=== PATIENT | female | born 1990 | race American Indian/Alaskan Native ===

== ENCOUNTER 2018-06-25 13:29 | Inpatient (IN) | payer MEDICAID, OTHER ==
--- NOTE | 2018-06-25 14:15 | Emergency Department Report ---
ED HPI - General Chief complaint: Vaginal Bleeding Stated complaint: EMERGENCY SURGERY Time Seen by Provider: 06/25/18 14:13 Source: patient Mode of arrival: Ambulatory Limitations: No Limitations - History of Present Illness Initial comments: Condition is a 28-year-old female that was sent to the ER by her UNIVERSAL WINDING MACHINE OPERATOR for preoperative evaluation. Patient states that she was told today she had a left tubal . Patient is still having vaginal spotting. Patient states she is 7 weeks and 4 days by ultrasound. Patient states she had pain up until this morning. Patient states her pain was a 10 out of 10 but at this time she is not having any pain. Patient states she is comfortable. Patient states that her UNIVERSAL WINDING MACHINE OPERATOR wants her admitted to the hospital. Patient's UNIVERSAL WINDING MACHINE OPERATOR is Dr. Sanchez. Ultrasound and office visit encounter reviewed. MD Complaint: abdominal pain, vaginal bleeding -: Sudden Severity scale (0 -10): 0 Consistency: now resolved Improves with: none Worsens with: none Associated symptoms: vaginal bleeding Vaginal bleeding: light :: Yes OB History - Current : other (ectopic ) OB History - Previous Pregnancies: no complications Pre-srikanth care: followed by OB - Related Data Allergies Allergy/AdvReac Type Severity Reaction Status Date / Time milk Allergy Vomiting Verified 06/25/18 13:45 ED Review of Systems ROS: Stated complaint: EMERGENCY SURGERY Other details as noted in HPI Constitutional: denies: chills, fever Eyes: denies: eye pain, eye discharge, vision change ENT: denies: ear pain, throat pain Respiratory: denies: cough, shortness of breath, wheezing Cardiovascular: denies: chest pain, palpitations Endocrine: no symptoms reported Gastrointestinal: abdominal pain. denies: nausea, diarrhea Genitourinary: denies: urgency, dysuria, discharge Musculoskeletal: denies: back pain, joint swelling, arthralgia Skin: denies: rash, lesions Neurological: denies: headache, weakness, paresthesias Psychiatric: denies: anxiety, depression Hematological/Lymphatic: denies: easy bleeding, easy bruising ED Past Medical Hx - Past Medical History Previous Medical History?: No - Surgical History Past Surgical History?: No - Family History Family history: no significant - Social History Smoking Status: Current Every Day Smoker Substance Use Type: None ED Physical Exam - General Limitations: No Limitations General appearance: alert, in no apparent distress - Head Head exam: Present: atraumatic, normocephalic - Eye Eye exam: Present: normal appearance - ENT ENT exam: Present: mucous membranes moist - Neck Neck exam: Present: normal inspection - Respiratory Respiratory exam: Present: normal lung sounds bilaterally. Absent: respiratory distress - Cardiovascular Cardiovascular Exam: Present: regular rate, normal rhythm. Absent: systolic murmur, diastolic murmur, rubs, gallop - GI/Abdominal GI/Abdominal exam: Present: soft, normal bowel sounds. Absent: distended, tenderness, guarding, rebound - Extremities Exam Extremities exam: Present: normal inspection - Back Exam Back exam: Present: normal inspection - Neurological Exam Neurological exam: Present: alert, oriented X3 - Psychiatric Psychiatric exam: Present: normal affect, normal mood - Skin Skin exam: Present: warm, dry, intact, normal color. Absent: rash ED Course Vital Signs 06/25/18 06/25/18 06/25/18 13:45 15:17 15:31 Temperature 98.9 F Pulse Rate 98 H Respiratory 18 Rate Blood Pressure 109/70 128/84 O2 Sat by Pulse 99 100 100 Oximetry 06/25/18 06/25/18 06/25/18 17:59 18:00 18:15 Temperature Pulse Rate Respiratory Rate Blood Pressure 128/94 126/82 126/82 O2 Sat by Pulse 98 97 Oximetry - Reevaluation(s) Reevaluation #1: Discussed all results with patient. Patient is admitted to the ELECTRONIC ASSEMBLER GROUP LEADER service. Patient agrees with plan of care. 06/25/18 16:23 - Consultations Consultation #1: Discussed case with Dr. Sanchez the patient's UNIVERSAL WINDING MACHINE OPERATOR from last cycle UNIVERSAL WINDING MACHINE OPERATOR. 06/25/18 14:16 dr sanchez to see patient. Dr. Sanchez ER. Patient admitted to her service. Dr. sanchez aware of pending ultrasound. 06/25/18 16:23 ED Medical Decision Making - Lab Data Result diagrams: 06/25/18 14:30 06/25/18 14:30 - Radiology Data Radiology results: report reviewed IMPRESSION: Single live gestation appears to be external to the uterine fundal contour in the abdominal location at 7 weeks 6 days with a heart rate of 161 beats per minute. It does not appear to be interstitial, cornual, or in the broad ligament. Findings are compatible with abdominal ectopic . No evidence for hemorrhage. Mild right adnexal and cul-de-sac fluid. No IUP identified. The endometrium is not significantly proliferative. Cervix is closed. - Medical Decision Making She is a 28-year-old female presents to emergency room with complaints of ectopic . Patient to be admitted to the UNIVERSAL WINDING MACHINE OPERATOR service. Labs unremarkable. Ultrasound done. - Differential Diagnosis abd pain. ectopic Critical Care Time: Yes Critical care attestation.: If time is entered above; I have spent that time in minutes in the direct care o f this critically ill patient, excluding procedure time. Critical Care Time: 35 minutes ED Disposition Clinical Impression: Lower abdominal pain Ectopic Qualifiers: Location of ectopic : abdominal Intrauterine status: without intrauterine Qualified Code(s): O00.00 - Abdominal without intrauterine Disposition: OP ADMIT IP TO THIS HOSP Is pt being admited?: Yes Does the pt Need Aspirin: No Condition: Critical Time of Disposition: 16:25
[2018-06-25 14:49] LABS: Basophils % (Auto) 0.3 % (0.0-1.8); Eosinophils # (Auto) 0.2 K/mm3 (0.0-0.4); Eosinophils % (Auto) 1.7 % (0.0-4.3); Hematocrit 36.3 % (30.3-42.9); Hemoglobin 11.4 gm/dl (10.1-14.3); Lymphocytes # (Auto) 2.2 K/mm3 (1.2-5.4); Lymphocytes % (Auto) 18.7 % (13.4-35.0); Mean Corpuscular HGB Conc 31 % (30-34); Mean Corpuscular Volume 75 fl (79-97); Monocytes # (Auto) 0.7 K/mm3 (0.0-0.8); Monocytes % (Auto) 5.7 % (0.0-7.3); Platelet Count 285 K/mm3 (140-440); Red Blood Count 4.86 M/mm3 (3.65-5.03); Red Cell Distribution Width 15.9 % (13.2-15.2)
[2018-06-25 14:59] LABS: INR 0.98 (0.87-1.13); Partial Thromboplastin Time 27.5 Sec. (24.2-36.6)
[2018-06-25 15:03] LABS: BUN/Creatinine Ratio 15; Blood Urea Nitrogen 6 mg/dL (7-17); Calcium 8.7 mg/dL (8.4-10.2); Hemolysis Index 4
[2018-06-25] MEDS ORDERED: ATIVAN IV ONE (16:34)
[2018-06-25] MEDS ORDERED: NACL 0.9% 1000 ML 1,000 ML IV ONE (16:34)
--- NOTE | 2018-06-25 16:56 | History and Physical Report ---
History of Present Illness Date of examination: 06/25/18 Date of admission: 06/25/18 Chief complaint: at 7 weks and 4 days with left ectopic. History of present illness: Patient is a 28 year old , LMP 04/01/18, at 7 weeks and 4 days gestation who went to the office for a routine OB sonogram for gestational dating. Sonogram showed a left tubal with positive FH. Serum HCG is 21,664. She complains of having vaginal spotting, but denies any pelvic pain. She did have mild left lower abdominal pain 2 days ago but it subsided. In ER, her vitals are stable. Past History Past Medical History: no pertinent history Medications and Allergies Allergies Allergy/AdvReac Type Severity Reaction Status Date / Time milk Allergy Vomiting Verified 06/25/18 13:45 Active Meds: Active Medications Sodium Chloride (Nacl 0.9% 1000 Ml) 1,000 mls @ 999 mls/hr IV BOLUS ONE Stop: 06/25/18 17:34 - Vital Signs Vital signs: Vital Signs Temp Pulse Resp BP Pulse Ox 98.9 F 98 H 18 109/70 99 06/25/18 13:45 06/25/18 13:45 06/25/18 13:45 06/25/18 13:45 06/25/18 13:45 Temp Pulse Resp BP Pulse Ox 98.9 F 98 H 18 128/84 100 06/25/18 13:45 06/25/18 13:45 06/25/18 13:45 06/25/18 15:31 06/25/18 15:31 - Physical Exam Cardiovascular: Normal S1, Normal S2 Lungs: Positive: Clear to auscultation Vulva: both: normal Results Result Diagrams: 06/25/18 14:30 06/25/18 14:30 Abnormal lab results 06/25/18 06/25/18 06/25/18 Range/Units 14:30 14:30 14:30 WBC 11.7 H (4.5-11.0) K/mm3 MCV 75 L (79-97) fl MCH 24 L (28-32) pg RDW 15.9 H (13.2-15.2) % Seg Neutrophils % 73.6 H (40.0-70.0) % Seg Neutrophils # 8.6 H (1.8-7.7) K/mm3 Sodium 135 L (137-145) mmol/L BUN 6 L (7-17) mg/dL Creatinine 0.4 L (0.7-1.2) mg/dL HCG, Quant 96296 H (0-4) mIU/mL All other labs normal. Assessment and Plan - Patient Problems (1) Ectopic Current Visit: Yes Status: Acute Plan to address problem: I told the patient that the findings correlate with an ectopic . I offered her a diagnostic laparoscopy with possible salpingiectomy. Risks and benefits of the procedure were discussed with her such as infection, hemorrhage requiring blood transfusion, injury to the bowel, bladder and blood vessels, having the abdomen open to locate if needed, having fallopian tube removed. She xpressed understanding, her questions were answered, she gave her informed consent. Keep NPO. IV hydration.
--- NOTE | 2018-06-25 17:13 | Ultrasound Report ---
FINAL REPORT EXAM: US OB <= 14 WEEKS FETUS HISTORY: Vaginal bleeding 28-year-old female, LMP 04/01/2018, 2, para 0, vaginal bleeding, q uestionable ectopic Comparison: None TECHNIQUE: Obstetric pelvic sonographic imaging was performed. FINDINGS: Normally anteverted uterus to measure 8.3 x 3.9 x 4.7 centimeters. Superior to the uterine contour, outside the uterine fundus and anterior, there is a round mass measu ring 3.9 centimeters which appears to contain a pole. By crown-rump length of 1.5 centimeters, estimated gestational age is 7 weeks 6 days. heart rate measures 161 beats per minute. Endometr ium does not appear significantly proliferative. Endometrial stripe measures 1 centimeter. There is minimal free fluid around the right adnexa. Right ovary measures 3.4 x 1.5 x 2.2 centimeters and contains 1.8 centimeter solid mass. Left ovary measures 1.9 x 1.4 x 2.8 centimeters and contains a mixed cystic and solid 1.7 centimeter mass.. IMPRESSION: Single live intrauterine gestation appears to be external to the uterine fundal contour in the abdomi nal location. It does not appear to be interstitial. Findings are concerning for abdominal ectopic pr egnancy. No IUP identified. The endometrial is not significantly proliferative. There is mild free fluid around the right adnexa. Cervix is closed.
--- NOTE | 2018-06-25 17:19 | Ultrasound Report ---
FINAL REPORT EXAM: US OB TRANSVAGINAL HISTORY: SUSPECTED ECTOPIC AT DR OFFICE TECHNIQUE: Obstetric pelvic sonographic imaging was performed. FINDINGS: IMPRESSION: Single live intrauterine gestation appears to be external to the uterine fundal contour in the abdominal location. It does not appear to be interstitial. Findings are concerning for abdomin al ectopic . No IUP identified. The endometrial is not significantly proliferative. There is mild free fluid around the right adnexa. Cervix is closed. FINDINGS: Normally anteverted uterus to measure 8.3 x 3.9 x 4.7 centimeters. Superior to the uterine contour, outside the uterine fundus and anterior, there is a round mass measu ring 3.9 centimeters which appears to contain a pole. By crown-rump length of 1.5 centimeters, estimated gestational age is 7 weeks 6 days. heart rate measures 161 beats per minute. Endometr ium does not appear significantly proliferative. Endometrial stripe measures 1 centimeter. There is minimal free fluid around the right adnexa. Right ovary measures 3.4 x 1.5 x 2.2 centimeters and contains 1.8 centimeter solid mass. Left ovary measures 1.9 x 1.4 x 2.8 centimeters and contains a mixed cystic and solid 1.7 centimeter mass.. IMPRESSION: Single live gestation appears to be external to the uterine fundal contour in the abdominal location at 7 weeks 6 days with a heart rate of 161 beats per minute. It does not appear to be intersti tial, cornual, or in the broad ligament. Findings are compatible with abdominal ectopic . No evidence for hemorrhage. Mild right adnexal and cul-de-sac fluid. No IUP identified. The endometrium is not significantly proliferative. Cervix is closed. Findings called and discussed with ALLISON Arguello on 06/25/2018 at 1716 hours Eastern Standard ti me.
[2018-06-25] MEDS ORDERED: SUBLIMAZE ONE (18:35)
[2018-06-25] MEDS ORDERED: DIPRIVAN 10 MG/ML IV ONE (18:35)
[2018-06-25] MEDS ORDERED: XYLOCAINE MPF 2% ONE (18:35)
[2018-06-25] MEDS ORDERED: ZEMURON IV ONE (18:35)
[2018-06-25] MEDS ORDERED: MORPHINE IV ONE (19:23)
--- NOTE | 2018-06-25 19:35 | Anesthesia Consultation ---
Anesthesia Consult and Med Hx Date of service: 06/25/18 - Airway Anesthetic Teeth Evaluation: Good ROM Head & Neck: Adequate Mental/Hyoid Distance: Adequate Mallampati Class: Class I Intubation Access Assessment: Probably Good - Pulmonary Exam CTA: Yes - Cardiac Exam Cardiac Exam: RRR - Pre-Operative Health Status ASA Pre-Surgery Classification: ASA2 Proposed Anesthetic Plan: General, MAC - Pulmonary Hx Smoking: Yes Hx Respiratory Symptoms: No - Cardiovascular System Hx Hypertension: No Hx Cardia Arrhythmia: No Hx Peripheral Vascular Disease: No - Central Nervous System Hx Neuromuscular Disorder: No Hx Seizures: No - Gastrointestinal Hx Gastroesophageal Reflux Disease: No - Endocrine Hx Renal Disease: No Hx Liver Disease: No Hx Insulin Dependent Diabetes: No Hx Non-Insulin Dependent Diabetes: No Hx Thyroid Disease: No - Hematic Hx Anemia: No Hx Sickle Cell Disease: No - Other Systems Hx Alcohol Use: No Hx Obesity: Yes - Additional Comments Anesthesia Medical History Comments: No GAC, No FHAC
[2018-06-25] MEDS ORDERED: LACTATED RINGERS 1,000 ML IV SCH (20:00)
[2018-06-25] MEDS ORDERED: ANCEF/STERILE WATER 2 GM/20 ML 2 GM/20 ML SYRINGE IV NR (20:00)
[2018-06-25] MEDS ORDERED: NEO SYNEPHRINE/NS Syringe(OR USE) IV ONE (22:05)
[2018-06-25] MEDS ORDERED: DILAUDID ONE (22:21)
[2018-06-25] MEDS ORDERED: MARCAINE 0.5% INFILTRATI ONE (23:03)
[2018-06-25] MEDS ORDERED: TORADOL ONE (23:06)
--- NOTE | 2018-06-25 23:25 | Operative Report ---
Operative Report Operative Report: Date of procedure: 06/25/2018 Pre-operative diagnosis: 1. Pelvic pain 2. Suspected left ectopic Post-operative diagnosis: Confirmed left ectopic Procedure name(s): 1. Laparoscopic left salpingectomy 2. Lysis of pelvic adhesions Surgeon: Jadiel Mcintosh MD Underground Distribution Engineer: None Anesthesia: Gen. endotracheal intubation by Dr. Sue EBL: 150 mL Findings: A normal-sized uterus with extensive tubo-ovarian adhesions. There was a large left mass in the distal portion of the left fallopian tube. The right fallopian tube was tortuous with tubo-ovarian adhesions around the tube and ovary. Approximately 150 mL's of blood and blood clots in the pelvic cul-de-sac. Procedure: After the patient was correctly identified, she was prepped and draped in the usual sterile fashion and placed in dorsolithotomy position. First the bladder was catheterized using a Martínez catheter, and the speculum was placed in the vaginal vault and the anterior lip of the cervix was grasped using single-tooth tenaculum. The uterine manipulator was then placed and the tenaculum and speculum were removed. Attention was then turned to the abdomen where first a periumbilical incision was made using a skin knife. The Optiview trocar was inserted under direct visualization. After an adequate amount of abdominal insufflation, visualization of the pelvic organs found a normal-size uterus with extensive tubo-ovarian adhesions. There was a large left mass in the distal portion of the left fallopian tube. The right fallopian tube was tortuous with tubo-ovarian adhesions around the tube and ovary. And approximately 150 mL's of blood and blood clots in the pelvic cul-de-sac. Next the suprapubic and the left lateral incision was made through which 5 mm trochars were placed in order to aid in manipulation of the pelvic organs. The left fallopian tube was clamped cauterized and cut along his proximal margin, extending along the mesosalpinx down to the distal portion of the tube, it was removed intact along with the left ectopic . The specimen was removed using the Endopouch, and sent to pathology. The extensive tubo-ovarian adhesions were taken down using the tripolar cautery, and the right fallopian tube was freed as much as it possibly could. Copious amounts of irrigation was then performed, and then the Tisseel sealant was sprayed over the left salpingectomy site. At this point the procedure was considered complete. All instruments were removed from the abdomen. The abdomen was deflated, and the periumbilical incision was closed using 0 Vicryl suture in a [id number] configuration of the fascia followed by 4-0 Monocryl suture in a sub-cuticular fashion on the skin. The suprapubic and left lateral incisions were closed in similar fashion. Each incision was infiltrated using 0.5 Marcaine solution. The Martínez catheter was removed, the uterine manipulated also removed, the patient tolerated the procedure well and was transferred to recovery room in stable condition.
[2018-06-25] MEDS ORDERED: D5LR 1,000 ML IV SCH (23:45)
[2018-06-25] MEDS ORDERED: TORADOL IV SCH (23:45)
[2018-06-25] MEDS ORDERED: MORPHINE IV PRN (23:50)
[2018-06-25] MEDS ORDERED: ZOFRAN IV PRN (23:50)
[2018-06-25] MEDS ORDERED: PERCOCET 5/325 PO PRN (23:50)
[2018-06-25] MEDS ORDERED: NARCAN 0.4 MG/1 ML IV PRN (23:50)
[2018-06-25] MEDS ORDERED: TYLENOL PO PRN (23:50)
[2018-06-25] MEDS ORDERED: NORCO 5/325 PO PRN (23:50)
[2018-06-26] MEDS ORDERED: HABITROL TD ONE (01:03)
[2018-06-26] MEDS: ANCEF/NS 1 GM/50 ML 1 GM/50 ML BAG IV SCH ×2 (04:01→12:54)
[2018-06-26 07:30] LABS: Hematocrit 34.9 % (30.3-42.9); Hemoglobin 11.2 gm/dl (10.1-14.3)
--- NOTE | 2018-06-26 11:45 | Progress Note ---
Assessment and Plan - Patient Problems (1) Hx of unilateral salpingectomy Onset Date: 06/26/18 Current Visit: Yes Status: Resolved Plan to address problem: A: S/P left salpingectomy for left ectopic - POD #1 Doing well P: May go home today. Subjective - Subjective Date of service: 06/26/18 Principal diagnosis: s/p laproscopic left salpingectomy - POD #1 Interval history: Pt is feeling well s/p Laproscopic left salpingectomy for a left ectopic . She is tolerating a liquid diet without nausea or vomiting, ambulating and voiding without difficulty. Patient reports: appetite normal, voiding normally, pain well controlled, flatus, ambulating normally, no dizzy ambulation, no nauseated Objective - Vital Signs Latest vital signs: Vital Signs Temp Pulse Resp BP BP Pulse Ox 06/26/18 07:38 98.2 F 108 H 18 105/76 06/26/18 05:10 98.1 F 109 H 20 108/68 73 L 06/26/18 00:35 98.5 F 117 H 20 128/80 97 06/26/18 00:15 98.1 F 116 H 16 123/77 96 06/26/18 00:13 17 06/26/18 00:00 110 H 14 140/77 100 06/25/18 23:45 117 H 14 121/64 100 06/25/18 23:40 108 H 14 116/67 100 06/25/18 23:35 115 H 14 120/99 100 06/25/18 23:30 97.2 F L 110 H 18 127/99 100 06/25/18 20:50 97.7 F 101 H 20 137/92 100 06/25/18 18:15 126/82 97 06/25/18 18:00 126/82 98 06/25/18 17:59 128/94 06/25/18 15:31 128/84 100 06/25/18 15:17 100 06/25/18 13:45 98.9 F 98 H 18 109/70 99 Intake and Output 06/25/18 06/26/18 06/26/18 22:59 06:59 14:59 Intake Total 525 120 Output Total 400 Balance 125 120 Intake: IV 525 D5lr 1,000 ml @ 125 mls/ 125 hr IV DIRECT AJ Rx#: [id number] Oral 120 Output: Urine 400 Void 400 Other: Total, Intake Amount 120 Total, Output Amount 400 Voiding Method Toilet # Voids Void 1 1 Weight 70.5 kg - Exam Abdomen: Present: normal appearance, soft Uterus: Present: normal Extremities: Present: normal Incision: Present: normal, dry, intact - Labs Labs: Abnormal lab results 06/25/18 06/25/18 06/25/18 Range/Units 14:30 14:30 14:30 WBC 11.7 H (4.5-11.0) K/mm3 MCV 75 L (79-97) fl MCH 24 L (28-32) pg RDW 15.9 H (13.2-15.2) % Seg Neutrophils % 73.6 H (40.0-70.0) % Seg Neutrophils # 8.6 H (1.8-7.7) K/mm3 Sodium 135 L (137-145) mmol/L BUN 6 L (7-17) mg/dL Creatinine 0.4 L (0.7-1.2) mg/dL HCG, Quant 75091 H (0-4) mIU/mL
--- NOTE | 2018-06-26 11:47 | Discharge Summary ---
Providers - Providers Date of Admission: 06/25/18 16:33 Date of discharge: 06/26/18 Attending physician: MAINE COBOS MD Primary care physician: CHANTE FOREMAN Hospitalization Reason for admission: other (Pelvic pain; Left ectopic ) Procedure: other (Laproscopic left salpingectomy; Lysis of pelvic adhesions) Incision: normal, dry, intact Other procedures: none complications: none Discharge diagnosis: other (s/p Laproscopic left salpingectomy for left ectopic ) Hospital course: Patient is a 28 year old BF , LMP 04/01/18, at 7 weeks and 4 days gestation who went to the office for a routine OB sonogram for gestational dating. Sonogram showed a left tubal with positive FH. Serum HCG is 21,664. She complains of having vaginal spotting, but denies any pelvic pain. She underwent an uncomplicated left salpingectomy for left ectopic , and tolerated the procedure well. By POD #1 she was tolerating a reg diet without nausea or vomiting, ambulating and voiding without difficulty. She was therefore discharged to home on POD #1 to follow up with [facility] Filter Operator in 1 week. Condition at discharge: Good Disposition: DC-01 TO HOME OR SELFCARE - Discharge Diagnoses (1) Hx of unilateral salpingectomy Status: Resolved Plan - Discharge Medications Prescriptions: HYDROcodone/APAP 5-325 [[place] 5-325 mg TAB] 1 each PO Q6HR PRN #30 tablet PRN Reason: Pain, Moderate (4-6) Ibuprofen [Motrin] 800 mg PO Q8HR PRN #30 tablet PRN Reason: Pain, Mild (1-3) - Provider Discharge Summary Activity: routine, no sex for 6 weeks, no heavy lifting 4 weeks, no strenuous exercise Diet: routine Instructions: routine Additional instructions: [] Smoking cessation referral if applicable(refer to patient education folder for contact #) [] Refer to [facility]'s [facility] Center Booklet Call your doctor immediately for: * Fever > 100.5 * Heavy vaginal bleeding ( >1 pad per hour) * Severe persistent headache * Shortness of breath * Reddened, hot, painful area to leg or breast * Drainage or odor from incision. * Keep incision clean and dry at all times and follow doctor's instructions regarding bathing/showering - Follow up plan Follow up: CHANTE FOREMAN MD [Primary Care Provider] - 3-5 Days MAINE COBOS MD [Staff Physician] - 7 Days
[2018-06-28 11:24] VITALS: BP 127/89
== END 2018-06-26 14:45 | disposition home or self-care (01) | DRG 819 ==
LOC: ED 13:29 → OB 16:33
PROVIDERS: ADMIT Obstetrics & Gynecology; ATTEND Obstetrics & Gynecology
PROC: 10T24ZZ Resection of Products of Conception, Ectopic, Percutaneous Endoscopic Approach (ICD-10-PCS; principal; 2018-06-25)
PROC: 0UT64ZZ Resection of Left Fallopian Tube, Percutaneous Endoscopic Approach (ICD-10-PCS; 2018-06-25)
PROC: 0UN54ZZ Release Right Fallopian Tube, Percutaneous Endoscopic Approach (ICD-10-PCS; 2018-06-25)
DX: O00.102 Left tubal pregnancy without intrauterine pregnancy (principal); F17.200 Nicotine dependence, unspecified, uncomplicated; E66.9 Obesity, unspecified; Z91.011 Allergy to milk products; Z68.31 Body mass index [BMI] 31.0-31.9, adult
CPT/HCPCS: 36415; 76801; 76817; 80048; 84702; 84703; 85014; 85018; 85025; 85610; 85730; 86850; 86900; 86901; 88305; G0378; C9250; J0690; J1170; J1885; J2060; J2270; J2370; J2704; J3010; J7030; J7120; J7121